=== PATIENT | male | born 1970 | race Caucasian/White ===

== ENCOUNTER 2020-10-28 10:05 | Emergency (ER) | payer MEDICAID ==
[2020-10-28] MEDS: Ketorolac 60 MG/2 ML SDV IM ONE (10:10)
[2020-10-28] MEDS ORDERED: Ketorolac 60 MG/2 ML SDV ONE (10:37)
--- NOTE | 2020-10-28 10:38 | EDM.PDOC ---
ED HPI GENERAL MEDICAL PROBLEM - General Stated Complaint: FACE SWOLLEN since this morning. Time Seen by Provider: 10/28/20 10:15 - History of Present Illness INITIAL COMMENTS - FREE TEXT/NARRATIVE: Patient states he woke up this morning with pain and swelling involving the left facial cheek. it does not seem to bother the lower jaw but it is significant involving the upper jaw posterior aspect. He denies any falls or injuries to this area. He denies feeling sick. Patient states that feels very swollen between the jaw and the cheek. There is not been any drainage inside of his mouth. He states that he does have some problems with his teeth so he is not real surprised that this is happening. ED ROS GENERAL - Review of Systems Review Of Systems: Comprehensive ROS is negative, except as noted in HPI. HEENT: Reports: Other (Swelling and pain of the left facial cheek.) ED EXAM, GENERAL - Physical Exam Exam: See Below Throat/Mouth: Other (Pt has mild swelling of the left cheek. Oral exam reveals swelling lateral to the last molar. No pustule or drainage noted.) Course - Orders/Labs/Meds Meds: Medications Discontinued Medications Generic Name Dose Route Start Last Admin Trade Name Bobq PRN Reason Stop Dose Admin Ketorolac Tromethamine Confirm 10/28/20 10:37 Ketorolac 60 Mg/2 Ml Sdv Administered 10/28/20 10:38 Dose 60 mg .ROUTE .STK-MED ONE - Radiology Interpretation Free Text/Narrative:: Toradol 60 mg given IM. Departure - Departure Time of Disposition: 10:30 Disposition: Home, Self-Care 01 Condition: Good Clinical Impression: Dental abscess - Discharge Information *PRESCRIPTION DRUG MONITORING PROGRAM REVIEWED*: Not Applicable *COPY OF PRESCRIPTION DRUG MONITORING REPORT IN PATIENT MICHELLE: Not Applicable Referrals: PCP,None [Primary Care Provider] - Additional Instructions: Patient was started on clindamycin 300 mg 1 capsule 3 times daily for 7 days. I will also start him on Ultram 50 mg 1 or 2 tablets every 6 hours as needed given 12 tablets. He is also to use Tylenol 2 extra strength alternating with the Ultram for the next day or 2. He is to use warm compresses to the infected area for a few minutes every hour as needed. He is to follow-up with a dentist within the next few days which he agrees to do. The patient has no further questions. end of dictation
== END 2020-10-28 10:45 | disposition home or self-care (01) ==
LOC: LB.ED 10:05
DX: K04.7 Periapical abscess without sinus (principal)
CPT/HCPCS: 96372; 99282; J1885